=== PATIENT | male | born 1970 | race Two or more races ===

== ENCOUNTER 2021-04-08 18:32 | Emergency (ER) | payer OTHER ==
[~2021-04-08] VITALS: Ht 188 cm; Wt 106.6 kg
[2021-04-08 20:40] VITALS: BP 141/87
== END 2021-04-08 20:43 | disposition home or self-care (01) ==
LOC: ER 18:33
DX: H61.21 Impacted cerumen, right ear (principal); H60.91 Unspecified otitis externa, right ear

== ENCOUNTER 2021-04-18 20:06 | Emergency (ER) | payer OTHER ==
[~2021-04-18] VITALS: Ht 188 cm; Wt 104.3 kg
[2021-04-18 21:14] VITALS: BP 140/88
== END 2021-04-19 01:24 | disposition home or self-care (01) ==
LOC: ER 20:06
DX: H66.92 Otitis media, unspecified, left ear (principal); I10 Essential (primary) hypertension; F20.9 Schizophrenia, unspecified; G89.29 Other chronic pain; M54.9 Dorsalgia, unspecified; Z98.890 Other specified postprocedural states

== ENCOUNTER 2021-05-03 10:43 | Emergency (ER) | payer MEDICAID, OTHER ==
[~2021-05-03] VITALS: Ht 188 cm; Wt 117.9 kg
[2021-05-03 12:07] VITALS: BP 135/77
== END 2021-05-03 12:41 | disposition home or self-care (01) ==
LOC: ER 10:43
DX: I10 Essential (primary) hypertension (principal); R51.9 Headache, unspecified; Z86.73 Personal history of transient ischemic attack (TIA), and cerebral infarction without residual deficits

== ENCOUNTER 2021-06-25 10:48 | Emergency (ER) | payer MEDICAID ==
[~2021-06-25] VITALS: Ht 188 cm; Wt 108.9 kg
[2021-06-25 11:47] LABS: Basophils # (auto) 0.1 10 ^3/uL (0-0.2); Basophils % (auto) 0.7 % (0.0-2.0); Eosinophils # (auto) 0.1 10 ^3/uL (0-0.8); Eosinophils % (auto) 1.4 % (0.0-7.0); Hematocrit 44.2 % (41.0-53.0); Hemoglobin 15.3 g/dL (13.5-17.5); Lymphocytes # (auto) 1.2 10 ^3/uL (0.4-5.4); Mean Corpuscular Hemoglobin 31.9 pg (28.0-32.0); Mean Corpuscular Hgb Conc. 34.7 g/dL (32.0-36.0); Monocytes # (auto) 0.5 10 ^3/uL (0-1.3); Monocytes % (auto) 6.6 % (0.0-12.0); Neutrophils % (auto) 73.3 % (37.0-80.0); Nucleated Red Blood Cells % 0.1 %; Red Blood Cells 4.81 10^6/uL (4.5-5.90); Red Cell Distribution Width 13.3 % (11.8-14.3); White Blood Cell 6.9 10^3/uL (4.4-10.8)
[2021-06-25 12:18] LABS: Albumin 3.9 g/dL (3.4-5.0); Calcium 8.4 mg/dL (8.5-10.1); Potassium 3.3 mmol/L (3.5-5.1)
[2021-06-25 12:22] LABS: BUN/Creatinine Ratio 12.2; Bilirubin, Total 0.3 mg/dL (0.2-1.0); Total Protein 7.8 g/dL (6.4-8.2)
[2021-06-25 12:32] LABS: Acetaminophen < 2.0 ug/mL (10-30); Salicylate 3.2 mg/dL (2.8-20.0)
[2021-06-25 13:00] LABS: Amphetamine Screen, Urine POSITIVE (NEGATIVE); Barbiturate Scree,Urine NEGATIVE (NEGATIVE); Benzodiazephine Screen, Urine NEGATIVE (NEGATIVE); Cannabinoid Screen, Urine NEGATIVE (NEGATIVE); Cocaine Screen, Urine NEGATIVE (NEGATIVE); Opiate Scree,Urine NEGATIVE (NEGATIVE); Phencyclidine Screen, Urine NEGATIVE (NEGATIVE)
[2021-06-25 13:09] LABS: Alcohol, Urine < 3.0 mg/dL (0-10)
[2021-06-25 13:22] LABS: Urine Bacteria NONE SEEN /hpf (None Seen); Urine Blood Negative /uL (Negative); Urine Specific Gravity 1.004 (1.001-1.035); Urine Sperm PRESENT /hpf (None Seen); Urine WBC <1 /hpf (0 - 3)
[2021-06-25] MEDS ORDERED: SODIUM CHLORIDE 0.9% 1,000 ML IV ONE (13:30)
[2021-06-25] MEDS ORDERED: OLANZapine 5 MG TAB PO ONE (19:00)
[2021-06-25] MEDS ORDERED: traZODone HCL 50 MG TAB PO SCH (22:30)
[2021-06-25] MEDS ORDERED: SERTRALINE HCL 50 MG TAB PO SCH (22:30)
[2021-06-25] MEDS ORDERED: HALOPERIDOL 5 MG TAB PO SCH (22:30)
[2021-06-26] MEDS ORDERED: HALOPERIDOL 5 MG TAB PO SCH (08:00)
[2021-06-26] MEDS: GABAPENTIN 400 MG CAP PO SCH ×2 (08:58→10:00)
[2021-06-26] MEDS ORDERED: LISINOPRIL 10 MG TAB PO SCH (10:00)
[2021-06-26] MEDS ORDERED: LITHIUM CARBONATE 300 MG TAB PO SCH (10:00)
[2021-06-26] MEDS ORDERED: POTASSIUM CHL 20 Meq TABLET PO ONE (16:45)
[2021-06-26] MEDS ORDERED: busPIRone HCL 10 MG TAB PO SCH (18:00)
[2021-06-26] MEDS ORDERED: risperiDONE 1 MG TAB PO SCH (18:00)
[2021-06-26] MEDS ORDERED: levETIRAcetam 500 MG TAB PO SCH (18:00)
[2021-06-26 20:33] VITALS: BP 110/68
== END 2021-06-26 18:46 | disposition admitted as inpatient to this hospital (09) ==
LOC: ER 10:48
DX: F32.9 Major depressive disorder, single episode, unspecified (principal); R45.851 Suicidal ideations; F15.10 Other stimulant abuse, uncomplicated; E87.6 Hypokalemia; I10 Essential (primary) hypertension; F17.210 Nicotine dependence, cigarettes, uncomplicated; F20.9 Schizophrenia, unspecified; Z20.822 Contact with and (suspected) exposure to COVID-19
CPT/HCPCS: 36415; 71046; 80053; 80307; 80329; 81001; 83735; 84443; 85025; 87426; 93005